=== PATIENT | male | born 1935 | race Caucasian/White ===

== ENCOUNTER → 2016-05-19 | Outpatient (CLI) | payer BC ==
[~2016-05-19] MED LIST: AMLO5TAB2 PO; CHOL1TAB2 PO; LPT/40 PO; MULTTAB58 PO; OMEP20CA9 PO; PRS5 PO; TAMS0.4C59 PO
--- NOTE | 2016-05-21 07:50 | PAP/PSG TECHNICIAN REPORT ---
[facility] Windows Software Developer Polysomnogram Report Study name: None Report date: 05/20/2016 Study date: 05/19/2016 Referring Physician: FLACO DUGAN M.D. Name: CARMEN ESPARZA Interpreting Physician: Zeeshan Keyes D.O. Date of : 1935 Windows Software Developer: Kary Hackett, PSGT. Sex: Male Age: 80 StudyType: PSG Weight: 210 lbs Height: 80 years, Height 6' 0" BMI: 28.48 Medications: Atrovastatin 40 mg, Amlodipine 10 mg, Finasteride 5 mg, Omeprazole 20 mg, Tamsulosin 0.4 mg, Vit.-D3 1000 units, Multivitamin. Patient History 80 YR. OLD MALE IN ROOM # 7, PRESENTS TONIGHT FOR A TITRATION SLEEP STUDY.PT. STATES THAT HE FEELS LIKE HE ISNT GETTING ENOUGH AIR. HE WAKES OFTEN THROUGHOUT THE NIGHT FOR THE RESTROOM, PT HAS LUTS SYMPTOMS, PROSTATIC HYPERTROPHY. HE ALSO STATES THAT HE HAS IMSOMNIA Parameters Monitored NPSG: E1-M2, E2-M1, Fp1-M2, Fp2-M1, F3-M2, F4-M2, F4-M1, C3-M2, C4-M2, C4-M1, O1-M2, O2-M2, O2-M1, T3-M2, T4-M1, P3-M2, P4-M1, CHIN1, CHIN2, HR, EKG, Legs, PFLOW, SNOR, FLOW, CFLOW, Tidal Volume, THOR, ABDO, SpO2, PLTH, CPRESS, ETCO2 Wave, ETCO2, pH Sleep Architecture Sleep Stages Time at Lights Off 11:08:40 PM STAGES Time (min.) TST (%) Time at Lights On 5:30:10 AM Wake 97.5 -- Total Recording Time (TRT) 381.50 min. N1 5.5 2 Total Sleep Period (TSP) 370.5 min. N2 234.5 83 Total Sleep Time (TST) 283.0min. N3 0.0 0 Awake Time 98.0 min. REM 43.0 15 Wake after Sleep Onset 87.5 min. Sleep Efficiency (SE) 74 % Sleep Onset Latency (NIKUNJ) 11.0 min. Number of Stage 1 Shifts None Awakenings 6 Stage Changes 24 Number of REM periods 3 REM 43.0 15 REM Latency 38.5 min. NREM 240.0 85 Body Position Analysis Supine Right Left Side Prone Vertical Total Sleep Time (min.) 186.7 36.2 119.3 155.53 0.0 0.0 Total Sleep Time (%) 45% 13% 42% 55 0% N/A% Total Sleep Time REM (min.) 18.2 0.0 24.8 None 0.0 0.0 Total Sleep Time NREM (min.) 109.3 36.2 94.5 None 0.0 0.0 Intermittent Wake (min.) 59.2 0.0 38.3 None 0.0 0.0 Total Sleep Period (%) 50% None None None None None Arousals Myoclonus (PLM) * Events Count Index Events Count Index Spontaneous 20 4 Events Awake (PLMW) 0 0.0 Respiratory 0 0.0 Events Asleep w/ Arousal (PLMA) 2 0.4 PLM 2 0 Events Asleep w/o Arousal (PLMS) 29 6.1 Snoring 1 0 Total Asleep 31 6.6 Total 23 5 Total 31 5 Respiratory Analysis * CA OA MA CH H RERA Total Count 1 0 0 0 3 14 4 Index 0.2 0.0 0.0 0 0.6 3 3.8 Mean Duration 20.6 0.0 0.0 0.00 18.1 17.9 18.1 Longest Duration 20.6 0.0 0.0 0.00 0.0 25.4 29.7 Respiratory Event Summary Total Supine ~Supine Right Left Prone REM NREM Apneas Count 1 1 0 0 0 N/A 0 1 Index 0.2 0 0 0.0 0.0 N/A 0 0 Hypopneas (4% Desat) Count 3 1 2 0 2 N/A 2 1 Index 0.6 0.5 1 0.0 1.0 N/A 2.8 0.3 Apneas & All Hypopneas Count 4 2 2 0 2 N/A 2 2 Index 0.8 1 1 0 1 N/A 2.8 0.5 Respiratory Events (Digital Technician+All Hyp+RERA) Count 4 11 7 0 7 N/A 2 2 Index 3.8 5 3 0.0 3.5 N/A 12.6 2.3 Respiratory Related Arousal Count 0 11 0 0 0 N/A 0 0 Index 0.0 0 0 0 0 N/A 0 0 Snoring Analysis Supine Right Left Prone REM NREM Total Snore duration 3.4 min Snores count 47 7 50 N/A 35 69 104 Snore mean duration 2.0 Sec Snores index 22 12 25 N/A 48.8 17.3 22.0 TST with snoring (%) 1.2% Desaturation Event Summary: Minimum %SpO2 Event Count Mean/Min/Max Duration(sec.) Desaturation Index % Time In Bed > 90 8 44.7 / 23.5 / 60.0 1.6 81.2 86 - 90 5 32.8 / 12.0 / 51.0 4.2 18.7 81 - 85 0 N/A 0.0 0.1 76 - 80 0 N/A 0.0 0.0 71 - 75 0 N/A 0.0 0.0 66 - 70 0 N/A 0.0 0.0 61 - 65 0 N/A 0.0 0.0 56 - 60 0 N/A 0.0 0.0 51 - 55 0 N/A 0.0 0.0 < 50 0 N/A 0.0 0.0 Total REM NREM Awake <50% 0.0 min. 0.0 min. 0.0 min. 0.0 min. 51 - 60% 0.0 min. 0.0 min. 0.0 min. 0.0 min. 61 - 70% 0.0 min. 0.0 min. 0.0 min. 0.0 min. 71 - 80% 0.0 min. 0.0 min. 0.0 min. 0.0 min. 81 - 90% 71.2 min. 18.6 min. 30.5 min. 22.2 min. 91 - 100% 307.6 min. 24.3 min. 209.5 min. 73.8 min. Average 92 91 92 92 Minimum SpO2 80 80 86 81 Desaturation Event Index 1.6 7.0 1.3 0.0 # Desat. Events below 89% 4 1 3 0 Time(%) with Saturation below 89% 2.6 0.7 1.4 0.4 Time(min.) with Saturation below 89% 9.7 2.7 5.4 1.5 Heart Rate Analysis End Tidal CO2 Analysis Min (bpm) Max (bpm) Average (bpm) TSP (mins) % of TSP Awake 59 250 73 Above 55 mmHg 0.0 0.0 NREM 59 95 69 50-55 mmHg 0.0 0.0 REM 61 96 73 45-50 mmHg 283.0 100.0 Overall 59 96 69 40-45 mmHg 0.0 0.0 35-40 mmHg 0.0 0.0 30-35 mmHg 0.0 0.0 Average ETCO2 0.0 Supplemental O2 Values Minimum O2 level: None Value Start Time End Time Windows Software Developer Comments PAP Study: Mr. Esparza slept in the right, left, and supine positions. No cardiac arrhythmia or PLM's noted. No bruxism noted. CPAP was initiated at +4 CMH2O and up-titrated to an optimal level of +10 CMH2O, which nearly eliminated all respiratory events and snoring. A Lg. F&P simplus, was used during titration. awoke to use the restroom 3 times during the night. stated, I slept better than I have in a long time. The final report will be interpreted and signed by a sleep physician. The completed physician report will then be placed in the patient medical record. Pt. Stated this was a better night for him than usual. Isaias tolerated treatment and mask well. Increases were made for respiratory and snoring events'. Pt. woke three times to use the urinal. New F&P Simplus mask was given to the patient. Therapy Event: Therapy (cm H20) 5 7 8 10 Total Time at Pressure (min.) 15.4 102.1 210.1 52.7 TST at Pressure (min.) 4.5 74.7 156.8 47.0 # Periods 1 1 1 1 Sleep Onset (min.) 10.8 0.8 0.0 5.7 REM Onset (min.) N/A 33.8 25.8 N/A Sleep Efficiency % 29 73 74 89 Wakefulness (%) 70.8 26.8 25.4 10.8 Wakefulness (min.) 10.9 27.3 53.3 5.7 NREM 1 (%) 9.7 1.5 0.0 4.7 NREM 1 (min.) 1.5 1.5 0.0 2.5 NREM 2 (%) 19.4 61.4 59.2 84.5 NREM 2 (min.) 3.0 62.7 124.3 44.5 NREM 3 (%) 0.0 0.0 0.0 0.0 NREM 3 (min.) 0.0 0.0 0.0 0.0 REM (%) 0.0 10.3 15.5 0.0 REM (min.) 0.0 10.5 32.5 0.0 # Arousals 0 6 16 1 Arousal Index 0.0 4.8 6.1 1.3 # Snore 13 11 72 8 Snore Index 173.3 8.8 27.6 10.2 AHI 0.0 0.0 1.5 0.0 AHI Supine N/A N/A 1.0 0.0 AHI Non-Supine 0.0 0.0 3.0 0.0 NREM AHI 0.0 0.0 1.0 0.0 REM AHI N/A 0.0 3.7 N/A RDI 0.0 4.0 5.0 0.0 # Obstructive 0 0 0 0 # Central Ap 0 0 1 0 # Mixed 0 0 0 0 # Hypopneas 0 0 3 0 RERAS 0 5 9 0 Total Respiratory Events 0 5 13 0 Time Below SpO2 89.00% (min.) 0.0 0.0 8.1 0.0 Mean NREM SpO2 (%) 91 92 92 92 Mean REM SpO2 (%) N/A 92 90 N/A Mean Sleep SpO2 (%) 91 92 92 92 Min NREM SpO2 (%) 90 88 86 91 Min REM SpO2 (%) N/A 89 80 N/A Position Supine (min.) 0.0 0.0 116.7 10.8 Position Non-supine (min.) 4.5 74.7 40.1 36.2 LM Index Sleep 0.0 10.4 6.9 0.0 LM Index NREM 0.0 7.5 7.2 0.0 LM Index REM N/A 28.6 5.5 N/A Mean Heart Rate (bpm) 70 69 71 65 Min Heart Rate (bpm) 64 59 61 62
--- NOTE | 2016-05-22 11:51 | POLYSOMNOGRAPH REPORT ---
CLINICAL DATA: The patient is a 80-year-old male who is referred for a CPAP retitration. His history is that a diagnosis of severe sleep apnea was made in 2007. His apnea-hypopnea index was significantly about 40. He had returned for a CPAP titration and was treated with nasal CPAP at 8 cm. Recently, the patient has had the sensation that he not getting enough air. He also has had disturbed nocturnal sleep with increased awakenings. His BMI is 28.48. This was a CPAP retitration study. SLEEP ARCHITECTURE: The total sleep period was 370.5 minutes with a total sleep time of 283 minutes. The sleep efficiency was modestly reduced to 74%. The sleep latency was 11 minutes. The REM latency was shorter than normal at 38.5 minutes. Wake after sleep onset was 87.5 minutes. Sleep consisted of N1 at 2%, N2 at 83%, N3 at 0%, and REM sleep 15%. AROUSAL DATA: The patient had a total of 23 arousals including 20 spontaneous arousals, 2 PLM arousals, and 1 snoring arousal. The arousal index was 5. PERIODIC LIMB MOVEMENTS DATA: The patient had a total of 31 periodic limb movements with only 2 arousals. The PLM index was 6.6 events per hour and the PLM arousal index was 0.4 events per hour. EKG: No cardiac arrhythmias were noted. The cardiac rates ranged from 59 to 96 beats per minute. RESPIRATORY DATA: The patient was treated with nasal CPAP, which was initiated at 4 cm and had a final pressure of 10 cm. He had a total of 4 respiratory events, including 1 central apnea and 3 hypopneas. The apnea hypopnea index was only 0.8. At the final pressure of 10 cm, the apnea-hypopnea index was 0. He was at that pressure for a total of 52.7 minutes. OXIMETRY DATA: The patient had some very transient oxygen desaturations. The lowest saturation recorded was 80% and this is likely technical in nature. There was a total of 9.7 minutes with saturations less than 89% and some of this could be due to movement or artifact. SENIOR TAX ACCOUNTANT'S COMMENTS AND TREATMENT SUMMARY: The patient slept in the right, left, and supine positions. No bruxism was noted. CPAP was initiated at 4 cm and up titrated to an optimal level of 10 cm, which nearly eliminated at all respiratory events and snoring. A large F & P Simplus mask was used during titration. The patient awakened to use the restroom 3 times during the night. The patient stated "I slept better than I have been a long time." IMPRESSION: Obstructive sleep apnea -- resolved with nasal CPAP at 10 cm. COMMENTS: The patient did well with this CPAP titration. He did have more wake time than one would expect. Part of this is related to having to go to the bathroom 3 times. He does have a history of prostate problems, which may complicate this situation. His apnea was well controlled with the adjustment in pressure. Oxygenation was not significantly abnormal. The patient indicated that he slept much better than normal. RECOMMENDATIONS: 1. It is advised that the CPAP pressure be adjusted upward to 10 cm. 2. If the patient needs a new CPAP mask, it is suggested that he be supplied with F & P Simplus, size large. 3. The patient has mild elevation of body mass index of 28.48 and a weight reduction program is advised. 4. If possible, the patient should avoid sleeping in the supine position. 5. The patient should be advised of the usual principles of sleep hygiene including allowing approximately 7.5 hours of time for sleep and having a fairly regular sleep-wake schedule. MTDD
== END | disposition home or self-care (01) ==
LOC: C.NEUR 21:00
PROVIDERS: ATTEND Internal Medicine Geriatric Medicine
DX: G47.30 Sleep apnea, unspecified (principal)

== ENCOUNTER → 2016-12-03 | Outpatient (CLI) | payer BC ==
[2016-12-03 11:11] LABS: BASO % 0.3 %; BASO ABS # 0.02 K/uL (0-0.2); COMPLETE YES; EOS % 4.4 %; HEMATOCRIT 42.5 % (42-52); IG% 0.2 %; LYMPH % 17.3 %; LYMPH ABS # 1.15 K/uL (1.2-3.4); MEAN CORPUSCULAR HEMOGLOBIN 29.9 pg (25-34); MEAN CORPUSCULAR HGB CONC 33.2 g/dl (32-36); MONO % 5.6 %; NEUT % 72.2 %; PLATELET COUNT 271 K/uL (130-400); RED BLOOD COUNT 4.72 M/uL (4.7-6.1); WHITE BLOOD COUNT 6.65 K/uL (4.8-10.8)
[2016-12-03 11:31] LABS: BLOOD UREA NITROGEN 11 mg/dl (7-18); GLUCOSE 98 mg/dl (70-99)
[2016-12-03 11:32] LABS: ALT/SGPT 30 U/L (12-78); BUN/CREATININE RATIO 10.1 (10-20); CARBON DIOXIDE 27 mmol/L (21-32); CHLORIDE 105 mmol/L (98-107); CHOLESTEROL 145 mg/dl (0-200); POTASSIUM 3.7 mmol/L (3.5-5.1); SODIUM 141 mmol/L (136-145)
[2016-12-03 11:34] LABS: ALB/GLOB RATIO 1.2 (0.9-2); ALKALINE PHOSPHATASE 86 U/L (45-117); AST/SGOT 24 U/L (15-37); CHOLESTEROL/HDL RATIO 3.3; ESTIMATED AVERAGE GLUCOSE 126 mg/dl; HA1C FLAG Normal (Normal); HDL CHOLESTEROL 44 mg/dl; LDL CHOLESTEROL CALCULATED 64 mg/dl; TRIGLYCERIDES 186 mg/dl (0-150); VERY LOW DENSITY LIPOPROT CALC 37 mg/dl
== END | disposition home or self-care (01) ==
LOC: C.LABBC 08:32
PROVIDERS: ATTEND Internal Medicine Geriatric Medicine
DX: M19.90 Unspecified osteoarthritis, unspecified site (principal); I10 Essential (primary) hypertension; E78.5 Hyperlipidemia, unspecified; R73.9 Hyperglycemia, unspecified; D64.9 Anemia, unspecified; G47.30 Sleep apnea, unspecified

== ENCOUNTER → 2016-12-25 | Outpatient (CLI) | payer BC ==
[2016-12-25 11:01] LABS: BLOOD UREA NITROGEN 15 mg/dl (7-18); BUN/CREATININE RATIO 13.4 (10-20); CALCIUM 8.9 mg/dl (8.5-10.1); CARBON DIOXIDE 29 mmol/L (21-32); CHLORIDE 107 mmol/L (98-107); GLUCOSE 110 mg/dl (70-99); POTASSIUM 3.9 mmol/L (3.5-5.1); SODIUM 140 mmol/L (136-145)
== END | disposition home or self-care (01) ==
LOC: C.LABBC 08:48
PROVIDERS: ATTEND Internal Medicine Geriatric Medicine
DX: I10 Essential (primary) hypertension (principal)

== ENCOUNTER → 2017-02-19 | Outpatient (CLI) | payer BC ==
--- NOTE | 2017-02-19 12:13 | DIAGNOSTIC IMAGING REPORT ---
CHEST 2 VIEWS ROUTINE CLINICAL HISTORY: 81 years-old Male presenting with J20.9 Acute bronchitis. TECHNIQUE: PA and lateral views of the chest were obtained. COMPARISON: 05/31/2012. FINDINGS: Atherosclerosis of aortic arch. Cardiac silhouette normal in size. Minimal left basilar opacity new from prior. No pleural effusion or pneumothorax. Pleural thickening over the right lateral lung is unchanged, possibly prominent extrapleural fat. Osseous structures normal. Upper abdomen normal. IMPRESSION: 1. Left basilar opacity likely atelectasis or scarring. Electronically signed by: Marcelino Mendez M.D. 02/19/2017 12:11 PM Dictated Date/Time: 02/19/2017 12:10 PM
== END | disposition home or self-care (01) ==
LOC: C.LABBC 11:59
PROVIDERS: ATTEND Physician Assistant Medical
DX: J20.9 Acute bronchitis, unspecified (principal)

== ENCOUNTER → 2017-03-26 | Outpatient (CLI) | payer BC ==
--- NOTE | 2017-03-26 08:46 | DIAGNOSTIC IMAGING REPORT ---
RIGHT ANKLE 3 VIEWS HISTORY: S99.911A Right ankle injury [id number] COMPARISON: None. FINDINGS: There is no fracture or dislocation. Mild soft tissue swelling. Posterior calcaneal spur. No radiopaque foreign bodies. IMPRESSION: No fractures within the right ankle. Mild soft tissue swelling. Electronically signed by: Corona Castelan M.D. 03/26/2017 8:45 AM Dictated Date/Time: 03/26/2017 8:44 AM
== END | disposition home or self-care (01) ==
LOC: C.RAD 08:26
PROVIDERS: ATTEND Internal Medicine
DX: S99.911A Unspecified injury of right ankle, initial encounter (principal); X58.XXXA Exposure to other specified factors, initial encounter

== ENCOUNTER → 2017-05-20 | Outpatient (CLI) | payer BC ==
[2017-05-15 15:07] LABS: ALBUMIN 3.8 gm/dl (3.4-5.0); ALT/SGPT 31 U/L (12-78); AST/SGOT 19 U/L (15-37); BLOOD UREA NITROGEN 11 mg/dl (7-18); CALCIUM 8.7 mg/dl (8.5-10.1); CARBON DIOXIDE 26 mmol/L (21-32); GLUCOSE 101 mg/dl (70-99); POTASSIUM 4.2 mmol/L (3.5-5.1); SODIUM 136 mmol/L (136-145)
[2017-05-15 15:09] LABS: ALKALINE PHOSPHATASE 92 U/L (45-117); TOTAL PROTEIN 7.7 gm/dl (6.4-8.2)
[~2017-05-20] MED LIST changes: +OPTIRAY 320 IV PRN
--- NOTE | 2017-05-20 10:11 | DIAGNOSTIC IMAGING REPORT ---
ABD/PELVIS COMBO CT DOSE: 2493.45 mGycm HISTORY: Hematuria GROSS HEMATURIA *NO ORAL* TECHNIQUE: Multiaxial CT images of the abdomen and pelvis were performed pre and post intravenous contrast enhancement. A dose lowering technique was utilized adhering to the principles of ALARA. COMPARISON STUDY: None. FINDINGS: Minimal dependent atelectatic changes chest. Liver enhances uniformly. Gallstones within the gallbladder. Pancreas appears uniform. Moderate hyperplastic change left adrenal. Kidneys enhance uniformly. There is a 5 mm hypodensity left mid as well as right kidney statistically suggestive of small cysts. There is a 12 mm left renal parapelvic cyst. No significant postcontrast enhancement. Kidneys enhance uniformly. There is no significant space-occupying lesion, other than the small cysts previously. Ureters normal in course and caliber. Moderate somewhat irregular bladder wall thickening. A Saucedo catheter is in position within the bladder. Moderate prosthetic enlargement. Bowel pattern is considered nonobstructive throughout. There is no significant abdominal or pelvic adenopathy. IMPRESSION: 1. Several gallstones within the gallbladder lumen. 2. Bilateral renal cysts with no major space-occupying lesion identified. 3. Uniform kidney enhancement characteristics. 4. Bladder wall trabeculation versus irregular bladder wall thickening posterior aspect bladder base. Cystoscopy is recommended. 6. Hyperplastic change left adrenal. 7. Moderate prostate enlargement. The above report was generated using voice recognition software. It may contain grammatical, syntax or spelling errors. Electronically signed by: Nicolas Mendez M.D. 05/20/2017 10:10 AM Dictated Date/Time: 05/20/2017 10:03 AM
== END | disposition home or self-care (01) ==
LOC: C.CTS 09:04
PROVIDERS: ATTEND Urology
DX: R31.0 Gross hematuria (principal); N40.1 Benign prostatic hyperplasia with lower urinary tract symptoms; R33.9 Retention of urine, unspecified

== ENCOUNTER 2017-06-04 11:46 | Inpatient (IN) | payer BC, OTHER ==
[2017-05-30 08:43] VITALS: BMI 31.0
--- NOTE | 2017-05-30 09:14 | PAT Medication Instructions ---
Service Date May 30, 2017. Current Home Medication List Atorvastatin (Lipitor), 40 MG PO HS Cholecalciferol (Vitamin D-3), 1,000 INTER.UNIT PO QAM Finasteride (Proscar), 5 MG PO HS Losartan Potassium (Cozaar), 25 MG PO HS Multiple Vitamin (Multivitamin), 1 TAB PO QAM Omeprazole (Prilosec), 20 MG PO QAM Sildenafil Citrate (Viagra), 100 MG PO PRN Tamsulosin HCl (Tamsulosin HCl), 0.4 MG PO HS Triamcinolone Acetonide (Topic (Triamcinolone Acet 0.025%), 1 APPLN TOP BID PRN for PRN Medication Instructions For Your Scheduled Surgery - Hold the following medications 24 hours prior to surgery: Triamcinolone Acetonide (Topic (Triamcinolone Acet 0.025%), 1 APPLN TOP BID PRN for PRN Losartan Potassium (Cozaar), 25 MG PO HS - Hold the following medications the morning of surgery: Cholecalciferol (Vitamin D-3), 1,000 INTER.UNIT PO QAM Multiple Vitamin (Multivitamin), 1 TAB PO QAM Sildenafil Citrate (Viagra), 100 MG PO PRN (if needed) - Take the following medications the morning of surgery with a sip of water: Omeprazole (Prilosec), 20 MG PO QAM - Take the following medications as scheduled the night before surgery: Tamsulosin HCl (Tamsulosin HCl), 0.4 MG PO HS Sildenafil Citrate (Viagra), 100 MG PO PRN Finasteride (Proscar), 5 MG PO HS Atorvastatin (Lipitor), 40 MG PO HS If you have any questions please call us at [phone] or [phone] or [phone]
[2017-05-30 10:50] LABS: BASO % 0.4 %; BASO ABS # 0.03 K/uL (0-0.2); EOS % 4.2 %; EOS ABS # 0.33 K/uL (0-0.5); HEMATOCRIT 38.9 % (42-52); HEMOGLOBIN 12.9 g/dL (14.0-18.0); IG# 0.05 K/uL (0.00-0.02); LYMPH % 14.2 %; LYMPH ABS # 1.11 K/uL (1.2-3.4); MEAN CELL VOLUME 88.8 fL (80-100); MEAN CORPUSCULAR HEMOGLOBIN 29.5 pg (25-34); MEAN CORPUSCULAR HGB CONC 33.2 g/dl (32-36); MEAN PLATELET VOLUME 9.5 fL (7.4-10.4); MONO % 7.3 %; MONO ABS # 0.57 K/uL (0.11-0.59); NEUT % 73.3 %; NEUT ABS # 5.73 K/uL (1.4-6.5); PLATELET COUNT 350 K/uL (130-400); RED CELL DISTRIBUTION WIDTH CV 13.9 % (11.5-14.5); RED CELL DISTRIBUTION WIDTH SD 45.3 fL (36.4-46.3); WHITE BLOOD COUNT 7.82 K/uL (4.8-10.8)
[~2017-06-04] VITALS: Ht 182.9 cm; Wt 102.8 kg
[~2017-06-04 11:46] MED LIST changes: -AMLO5TAB2 PO; +ATROPINE SULFATE 0.1 MG/ML 5ML SYR IV PRN; +CEFAZOLIN 2000MG IV PUSH 10 ML IV SCH; +EpHEDrine SULFATE INJ 50 MG/ML AMP IV PRN; +FENTANYL CITRATE INJ 50 MCG/1 ML 2 ML VIAL IV PRN; +FINA5TAB PO; +FLM4 PO; +LACTATED RINGER'S 1000ML 1,000 ML IV SCH; +LOSA1TAB PO; +ONDANSETRON INJ 2 MG/ML 2 ML VIAL IV PRN; -OPTIRAY 320 IV PRN; -PRS5 PO; +SILD100T PO; -TAMS0.4C59 PO; +TRMO2580 TOP
[2017-06-04 12:15] VITALS: BP 171/98; PULSE 89; TEMP 36.7; O2SAT 93; Ht 182.9 cm; Wt 102.8 kg
--- NOTE | 2017-06-04 13:56 | History & Physical Bridge Note ---
H&P Re-Evaluation Bridge Note: I have examined the patient, reviewed the History & Physical and in the interval since the performance of the History & Physical I have noted the following changes of clinical significance: No changes noted
[2017-06-04] MEDS ORDERED: PROPOFOL IV EMULSION 10 MG/ML 20 ML VIAL IV ONE (14:47)
[2017-06-04] MEDS ORDERED: ONDANSETRON INJ 2 MG/ML 2 ML VIAL ONE (14:47)
[2017-06-04] MEDS ORDERED: FENTANYL CITRATE INJ 50 MCG/1 ML 2 ML VIAL ONE ×2 (14:47→17:10)
[2017-06-04] MEDS ORDERED: LIDOCAINE HCL 2% 2 ML VIAL (20MG/ML) ONE (14:47)
[2017-06-04] MEDS ORDERED: BELLADONNA/OPIUM SUPP 60 MG SUPP PR ONE ×2 (15:00→15:33)
[2017-06-04] MEDS ORDERED: MoRPHine SULFATE 2 MG/ML CARP IV PRN (15:00)
[2017-06-04] MEDS ORDERED: PHENAZOPYRIDINE HCL 200 MG TAB PO PRN (15:00)
[2017-06-04] MEDS ORDERED: ONDANSETRON INJ 2 MG/ML 2 ML VIAL IV PRN (15:00)
[2017-06-04] MEDS ORDERED: OXYCODONE/ACETAMINOPHEN 5-325 TAB PO PRN (15:00)
[2017-06-04] MEDS ORDERED: EpHEDrine SULFATE INJ 50 MG/ML AMP ONE (15:21)
--- NOTE | 2017-06-04 16:42 | [facility] Operative Report ---
Operative Report Operative Date Jun 04, 2017. Pre-Operative Diagnosis BPH with obstruction. Retention Post-Operative Diagnosis Same Procedure(s) Performed TURP Surgeon Fermin Estimated Blood Loss 40 cc Findings Large prostate bilateral enlargement with obstruction. Specimens 1. Prostate Chips from resection Drains [address] Anesthesia gen Complication(s) None Disposition Recovery Room / PACU Indications Recurrent retention failed conservative and medical management. Description of Procedure Patient was consented and brought back to the operating room. Patient was placed under anesthesia in the supine position and moved to the dorsal lithotomy position. Patient was prepped and draped in the regular sterile fashion. A time out was completed. A 30degree Cystoscope was placed into the bladder and the entire bladder was examined. The UO's were identified. The resection scope was placed and a bipolar loop selected. The landmarks of the prostate were assessed. The resection began at the 5 o'clock position from bladder neck to the veru. This was then extended from the 5 to 7 o'clock position to create a channel. The channel created, the lateral lakhani were resected from the 11 o'clock position to the 7 and from the 1 - 5 o'clock positions. This resection was taken to the capsule. The wound bed was then examined. All bleeding was controlled. The bladder was inspected. All resection chips were irrigated and cleared. No bleeding or clots were appreciated. The scope was removed. The bladder had been left partially full. The [address] catheter was placed and put on continuous irrigation. It was easily irrigated. The patient was cleaned, aroused from anesthesia, and transferred to the pacu in stable condition having tolerated the procedure well with no complications. I was present and participated in all aspects of the procedure. The patient will be monitored in the PACU until transferred. Patient will be observed overnight on continuous irrigation. I attest to the content of the Intraoperative Record and any orders documented therein. Any exceptions are noted below.
[2017-06-04 17:34] LABS: BASO % 0.2 %; BASO ABS # 0.02 K/uL (0-0.2); EOS % 2.6 %; EOS ABS # 0.21 K/uL (0-0.5); HEMATOCRIT 37.3 % (42-52); HEMOGLOBIN 12.4 g/dL (14.0-18.0); IG# 0.02 K/uL (0.00-0.02); LYMPH % 17.5 %; MEAN CELL VOLUME 88.4 fL (80-100); MEAN CORPUSCULAR HEMOGLOBIN 29.4 pg (25-34); MEAN CORPUSCULAR HGB CONC 33.2 g/dl (32-36); MEAN PLATELET VOLUME 9.3 fL (7.4-10.4); NEUT % 74.5 %; NEUT ABS # 5.97 K/uL (1.4-6.5); PLATELET COUNT 273 K/uL (130-400); RED CELL DISTRIBUTION WIDTH CV 14.1 % (11.5-14.5); RED CELL DISTRIBUTION WIDTH SD 45.1 fL (36.4-46.3); WHITE BLOOD COUNT 8.02 K/uL (4.8-10.8)
--- NOTE | 2017-06-04 17:35 | Anesthesiology Progress Note ---
Anesthesia Post Op Note Date & Time Jun 04, 2017 at 17:34 Vital Signs Pain Intensity: 0 Vital Signs Past 12 Hours Date Time Temp Pulse Resp B/P (MAP) Pulse Ox O2 Delivery O2 Flow Rate FiO2 06/04/17 17:25 76 16 127/85 96 Nasal Cannula 2 06/04/17 17:15 71 16 130/91 97 Room Air 06/04/17 17:05 82 16 145/99 98 Oxymask 10 06/04/17 16:55 85 16 135/92 97 Oxymask 10 06/04/17 16:47 37.4 90 16 139/91 100 Oxymask 10 06/04/17 12:15 36.7 89 20 171/98 (122) 93 Room Air Notes Mental Status: alert / awake / arousable, participated in evaluation Pt Amnestic to Procedure: Yes Nausea / Vomiting: adequately controlled Pain: adequately controlled Airway Patency, RR, SpO2: stable & adequate BP & HR: stable & adequate Hydration State: stable & adequate Anesthetic Complications: no major complications apparent
[2017-06-04 17:51] LABS: ALBUMIN 3.3 gm/dl (3.4-5.0); CALCIUM 8.3 mg/dl (8.5-10.1); CREATININE 1.04 mg/dl (0.60-1.40); POTASSIUM 3.9 mmol/L (3.5-5.1)
[2017-06-04 17:54] LABS: TOTAL PROTEIN 6.3 gm/dl (6.4-8.2)
--- NOTE | 2017-06-04 18:07 | Anesthesiology Progress Note ---
Anesthesia Post Op Note Date & Time Jun 04, 2017 at 18:06 Vital Signs Pain Intensity: 3 Vital Signs Past 12 Hours Date Time Temp Pulse Resp B/P (MAP) Pulse Ox O2 Delivery O2 Flow Rate FiO2 06/04/17 17:35 37.0 72 16 140/89 96 Nasal Cannula 2 06/04/17 17:25 76 16 127/85 96 Nasal Cannula 2 06/04/17 17:15 71 16 130/91 97 Room Air 06/04/17 17:05 82 16 145/99 98 Oxymask 10 06/04/17 16:55 85 16 135/92 97 Oxymask 10 06/04/17 16:47 37.4 90 16 139/91 100 Oxymask 10 06/04/17 12:15 36.7 89 20 171/98 (122) 93 Room Air Notes Mental Status: alert / awake / arousable, participated in evaluation Pt Amnestic to Procedure: Yes Nausea / Vomiting: adequately controlled Pain: adequately controlled Airway Patency, RR, SpO2: stable & adequate BP & HR: stable & adequate Hydration State: stable & adequate Anesthetic Complications: no major complications apparent
[2017-06-04 18:15] VITALS: BP 158/88; PULSE 65; TEMP 36.8; O2SAT 96
[2017-06-04] MEDS ORDERED: MoRPHine SULFATE 2 MG/ML CARP ONE (18:40)
[2017-06-04 19:15] VITALS: BP 144/85; PULSE 64; TEMP 36.4; O2SAT 96
[2017-06-04 20:15] VITALS: BP 142/82; PULSE 66; TEMP 36.3; O2SAT 96
[2017-06-04] MEDS ORDERED: NURSING VERBAL MED ORDER ONE (21:30)
[2017-06-04] MEDS: DOCUSATE SODIUM 100 MG CAP PO SCH (21:34)
[2017-06-04] MEDS: CEFAZOLIN IV 2,000 MG in SYRINGE 0 ML IV SCH (21:34)
[2017-06-04] MEDS: SODIUM CHLORIDE 0.9% 1000ML 1,000 ML IV SCH (21:35)
[2017-06-04] MEDS ORDERED: CALCIUM CARBONATE 500 MG CHEWABLE PO PRN (22:15)
[2017-06-04 23:11] VITALS: BP 139/84; PULSE 72; TEMP 36.8; O2SAT 95
[2017-06-05] MEDS: SODIUM CHLORIDE 0.9% 1000ML 1,000 ML IV SCH (05:28)
[2017-06-05] MEDS: CEFAZOLIN IV 2,000 MG in SYRINGE 0 ML IV SCH (05:28)
[2017-06-05 05:39] LABS: HEMATOCRIT 34.5 % (42-52); HEMOGLOBIN 11.4 g/dL (14.0-18.0); MEAN CELL VOLUME 89.4 fL (80-100); MEAN CORPUSCULAR HEMOGLOBIN 29.5 pg (25-34); MEAN PLATELET VOLUME 9.3 fL (7.4-10.4); PLATELET COUNT 238 K/uL (130-400); RED CELL DISTRIBUTION WIDTH CV 14.2 % (11.5-14.5); RED CELL DISTRIBUTION WIDTH SD 46.6 fL (36.4-46.3); WHITE BLOOD COUNT 8.94 K/uL (4.8-10.8)
[2017-06-05 06:02] LABS: ALBUMIN 2.9 gm/dl (3.4-5.0); CALCIUM 7.8 mg/dl (8.5-10.1); CREATININE 1.02 mg/dl (0.60-1.40)
[2017-06-05 06:04] LABS: TOTAL PROTEIN 5.8 gm/dl (6.4-8.2)
[2017-06-05 08:00] VITALS: BP 130/74; PULSE 79; TEMP 36.6; O2SAT 92
--- NOTE | 2017-06-05 09:24 | Progress Note ---
Subjective Date of Service: Jun 05, 2017. (Mariah Mckoy CRNP) Subjective Pt evaluation today including: conversation w/ patient, chart review, lab review Voiding: castellon catheter in place (patent, draining light pink urine with CBI clamped) 81 yo male s/p TURP. Pt c/o some bladder pain this morning, but otherwise feels well. Denies n/v. Labs stable. (Mariah Mckoy CRNP) Problem List Medical Problems: (1) Urinary retention Status: Acute (Mariah Mckoy CRNP) Review of Systems Constitutional: No fever, No chills Respiratory: No shortness of breath Cardiac: No chest pain Abdomen: No pain, No nausea, No vomiting Male : No hematuria Heme: No abnormal bleeding/bruising (Mariah Mckoy CRNP) Objective Vital Signs Date Time Temp Pulse Resp B/P (MAP) Pulse Ox O2 Delivery O2 Flow Rate FiO2 06/05/17 08:00 36.6 79 16 130/74 (92) 92 Room Air 06/04/17 23:30 Room Air CPAP 06/04/17 23:11 36.8 72 18 139/84 (102) 95 Room Air 06/04/17 20:15 36.3 66 18 142/82 (102) 96 Nasal Cannula 2.0 06/04/17 19:15 36.4 64 18 144/85 (104) 96 Nasal Cannula 2.0 06/04/17 18:15 36.8 65 16 158/88 (111) 96 Nasal Cannula 2.0 06/04/17 18:15 Nasal Cannula 2.0 06/04/17 18:15 Nasal Cannula 2.0 06/04/17 17:35 37.0 72 16 140/89 96 Nasal Cannula 2 06/04/17 17:25 76 16 127/85 96 Nasal Cannula 2 06/04/17 17:15 71 16 130/91 97 Room Air 06/04/17 17:05 82 16 145/99 98 Oxymask 10 06/04/17 16:55 85 16 135/92 97 Oxymask 10 06/04/17 16:47 37.4 90 16 139/91 100 Oxymask 10 06/04/17 12:15 36.7 89 20 171/98 (122) 93 Room Air (Mariah Mckoy CRNP) Physical Exam General Appearance: no apparent distress Eyes: normal inspection ENT: hearing grossly normal Neck: no JVD Respiratory/Chest: no respiratory distress, no accessory muscle use Cardiovascular: no JVD Extremities: normal inspection Neurologic/Psychiatric: alert, normal mood/affect, oriented x 3 Skin: normal color (Mariah Mckoy CRNP) Laboratory Results Last 24 Hours Test 06/04/17 16:59 06/05/17 05:19 White Blood Count 8.02 K/uL 8.94 K/uL Red Blood Count 4.22 M/uL 3.86 M/uL Hemoglobin 12.4 g/dL 11.4 g/dL Hematocrit 37.3 % 34.5 % Mean Corpuscular Volume 88.4 fL 89.4 fL Mean Corpuscular Hemoglobin 29.4 pg 29.5 pg Mean Corpuscular Hemoglobin Concent 33.2 g/dl 33.0 g/dl Platelet Count 273 K/uL 238 K/uL Mean Platelet Volume 9.3 fL 9.3 fL Neutrophils (%) (Auto) 74.5 % Lymphocytes (%) (Auto) 17.5 % Monocytes (%) (Auto) 5.0 % Eosinophils (%) (Auto) 2.6 % Basophils (%) (Auto) 0.2 % Neutrophils # (Auto) 5.97 K/uL Lymphocytes # (Auto) 1.40 K/uL Monocytes # (Auto) 0.40 K/uL Eosinophils # (Auto) 0.21 K/uL Basophils # (Auto) 0.02 K/uL RDW Standard Deviation 45.1 fL 46.6 fL RDW Coefficient of Variation 14.1 % 14.2 % Immature Granulocyte % (Auto) 0.2 % Immature Granulocyte # (Auto) 0.02 K/uL Sodium Level 138 mmol/L 138 mmol/L Potassium Level 3.9 mmol/L 4.0 mmol/L Chloride Level 105 mmol/L 105 mmol/L Carbon Dioxide Level 28 mmol/L 28 mmol/L Anion Gap 5.0 mmol/L 5.0 mmol/L Blood Urea Nitrogen 13 mg/dl 10 mg/dl Creatinine 1.04 mg/dl 1.02 mg/dl Est Creatinine Clear Calc Drug Dose 71.4 ml/min 72.8 ml/min Estimated GFR () 78.8 80.6 Estimated GFR (Non- 68.0 69.6 BUN/Creatinine Ratio 12.1 10.3 Random Glucose 91 mg/dl 92 mg/dl Calcium Level 8.3 mg/dl 7.8 mg/dl Total Bilirubin 0.5 mg/dl 0.5 mg/dl Aspartate Amino Transf (AST/SGOT) 11 U/L 11 U/L Alanine Aminotransferase (ALT/SGPT) 20 U/L 18 U/L Alkaline Phosphatase 73 U/L 70 U/L Total Protein 6.3 gm/dl 5.8 gm/dl Albumin 3.3 gm/dl 2.9 gm/dl Globulin 3.0 gm/dl 2.9 gm/dl Albumin/Globulin Ratio 1.1 1.0 (Mariah Mckoy CRNP) Assessment and Plan POD #1 s/p TURP. AFVSS. Pt doing well post-op. Encourage use of IS. Encourage OOB to chair and activity ad sheila. Will keep CBI clamped this morning. If urine remains light pink to yellow, will d/c home with castellon catheter after lunch. Pt to finish the Cipro he has at home for pre-op UTI. Discharge planning: home (Mariah Mckoy CRNP) Doing Well. Out of bed. Tolerating diet. No major issues. Tolerating catheter. Titrated down to slow drip. No significant color change. Very light pink urine. Likely home today with antibiotics and castellon. (Dennis Fermin, D.O.)
[2017-06-05] MEDS ORDERED: TRAM-10 PO (09:27)
[2017-06-05] MEDS ORDERED: PHEN-876 PO (09:27)
[2017-06-05] MEDS ORDERED: DOCU-94 PO (09:27)
[2017-06-05] MEDS: DOCUSATE SODIUM 100 MG CAP PO SCH (09:30)
--- NOTE | 2017-06-05 09:31 | Discharge Instructions ---
Discharge Instructions Date of Service Jun 05, 2017. Admission Reason for Admission: Bph Loc W Urin Obs/Luts, Retention Of Urine Discharge Discharge Diagnosis / Problem: Benign prostatic hyperplasia with urinary obstruction and retention Discharge Goals Goal(s): Decrease discomfort, Improve disease control, Therapeutic intervention Activity Recommendations Activity Limitations: as noted below Lifting Limitations: no more than 10 pounds (x 1 week ) Exercise/Sports Limitations: rest today, gradually increase as tolerated ( light activity x 1 week ) May Resume Sexual Activity: after follow-up appointment Shower/Bathe: no limitations (You may shower. No tub baths with castellon catheter in place. ) Driving or Machine Use: resume 3 days after discharge (Do not drive while taking narotics. ) . Instructions / Follow-Up Instructions / Follow-Up 1. Finish all of the ciprofloxacin you have been prescribed. 2. Follow-up for castellon catheter removal on 06-14-17 at 10:20am and with Dr. Fermin on 06-25-17 at 2:20pm. Please call our office at [phone] if you need to reschedule for any reason. Current Hospital Diet Patient's current hospital diet: AHA Diet (Heart Healthy) Discharge Diet Recommended Diet: Regular Diet Procedures Procedures Performed: TURP Pending Studies Studies pending at discharge: yes List of pending studies: prostate tissue Medical Emergencies . Who to Call and When: Medical Emergencies: If at any time you feel your situation is an emergency, please call 911 immediately. . Non-Emergent Contact Non-Emergency issues call your: Urologist Call Non-Emergent contact if: temperature is above 101.5, your pain is not controlled, your pain is worsening, your pain is unusual for you, your pain is concerning you, you have any medication questions . . "Provider Documentation" section prepared by Mariah Mckoy. . VTE Core Measure Inpt VTE Proph given/why not?: SCD's [place] Drug Monitoring Program Search Results: patient reviewed within database, no issues identified
[2017-06-05 11:09] VITALS: BP 130/74; PULSE 79; TEMP 36.6; O2SAT 92
--- NOTE | 2017-06-05 13:21 | Anesthesiology Progress Note ---
Anesthesia Post Op Note Date & Time Jun 05, 2017 at 13:20 Vital Signs Pain Intensity: 0.0 Vital Signs Past 12 Hours Date Time Temp Pulse Resp B/P (MAP) Pulse Ox O2 Delivery O2 Flow Rate FiO2 06/05/17 11:09 36.6 79 16 92 Room Air 06/05/17 08:00 36.6 79 16 130/74 (92) 92 Room Air Notes Mental Status: alert / awake / arousable, participated in evaluation Nausea / Vomiting: adequately controlled Pain: adequately controlled Airway Patency, RR, SpO2: stable & adequate BP & HR: stable & adequate Hydration State: stable & adequate Awake, VSS. No pain. No complaints with anesthesia care.
== END 2017-06-05 15:34 | disposition home or self-care (01) | DRG 666 ==
LOC: C.ACU 11:46 → C.MSN 14:20 → UNDOADMIN 15:05 → ENRESERV 17:49
PROVIDERS: ADMIT Urology; ATTEND Urology
PROC: 0VT00ZZ Resection of Prostate, Open Approach (ICD-10-PCS; principal; 2017-06-04 13:45)
DX: R33.9 Retention of urine, unspecified (principal); N13.8 Other obstructive and reflux uropathy; N40.1 Benign prostatic hyperplasia with lower urinary tract symptoms; K21.9 Gastro-esophageal reflux disease without esophagitis; I10 Essential (primary) hypertension; M19.90 Unspecified osteoarthritis, unspecified site; G47.30 Sleep apnea, unspecified

== ENCOUNTER → 2017-12-12 | Outpatient (CLI) | payer BC ==
[~2017-12-12] MED LIST changes: -ATROPINE SULFATE 0.1 MG/ML 5ML SYR IV PRN; -CEFAZOLIN 2000MG IV PUSH 10 ML IV SCH; -EpHEDrine SULFATE INJ 50 MG/ML AMP IV PRN; -FENTANYL CITRATE INJ 50 MCG/1 ML 2 ML VIAL IV PRN; -LACTATED RINGER'S 1000ML 1,000 ML IV SCH; -ONDANSETRON INJ 2 MG/ML 2 ML VIAL IV PRN
== END | disposition home or self-care (01) ==
LOC: C.LABSPEC 17:09
PROVIDERS: ATTEND Podiatrist Foot & Ankle Surgery
DX: L60.0 Ingrowing nail (principal)

== ENCOUNTER → 2017-12-31 | Outpatient (CLI) | payer BC ==
[2017-12-31 11:02] LABS: BASO % 0.4 %; BASO ABS # 0.03 K/uL (0-0.2); EOS % 5.4 %; HEMATOCRIT 42.7 % (42-52); HEMOGLOBIN 14.1 g/dL (14.0-18.0); IG# 0.02 K/uL (0.00-0.02); LYMPH % 16.5 %; LYMPH ABS # 1.21 K/uL (1.2-3.4); MEAN CELL VOLUME 89.1 fL (80-100); MEAN CORPUSCULAR HEMOGLOBIN 29.4 pg (25-34); MEAN PLATELET VOLUME 9.8 fL (7.4-10.4); MONO % 7.1 %; MONO ABS # 0.52 K/uL (0.11-0.59); NEUT % 70.3 %; NEUT ABS # 5.16 K/uL (1.4-6.5); PLATELET COUNT 282 K/uL (130-400); RED CELL DISTRIBUTION WIDTH CV 13.7 % (11.5-14.5); RED CELL DISTRIBUTION WIDTH SD 45.3 fL (36.4-46.3); WHITE BLOOD COUNT 7.34 K/uL (4.8-10.8)
[2017-12-31 11:11] LABS: ALBUMIN 3.8 gm/dl (3.4-5.0); ALKALINE PHOSPHATASE 92 U/L (45-117); ALT/SGPT 28 U/L (12-78); AST/SGOT 16 U/L (15-37); BLOOD UREA NITROGEN 15 mg/dl (7-18); CALCIUM 8.5 mg/dl (8.5-10.1); CARBON DIOXIDE 26 mmol/L (21-32); CHOLESTEROL 134 mg/dl (0-200); CREATININE 1.08 mg/dl (0.60-1.40); GLUCOSE 111 mg/dl (70-99); LDL CHOLESTEROL CALCULATED 55 mg/dl; POTASSIUM 4.3 mmol/L (3.5-5.1); SODIUM 139 mmol/L (136-145); TOTAL PROTEIN 7.5 gm/dl (6.4-8.2)
== END | disposition home or self-care (01) ==
LOC: C.LABBC 08:54
PROVIDERS: ATTEND Internal Medicine Geriatric Medicine
DX: I10 Essential (primary) hypertension (principal); E78.5 Hyperlipidemia, unspecified; D64.9 Anemia, unspecified; R73.9 Hyperglycemia, unspecified; G47.30 Sleep apnea, unspecified